=== PATIENT | female | born 1945 | race African-American/Black ===

== ENCOUNTER 2018-09-29 09:38 | Emergency (ER) | payer OTHER ==
[2018-09-29 09:56] VITALS: PULSE 58; BMI 33.3
--- NOTE | 2018-09-29 10:09 | PDOC ---
History of Present Illness - General Chief Complaint: Lightheaded Stated Complaint: WEAKNESS Time Seen by Provider: 09/29/18 09:51 History Source: Patient Exam Limitations: No Limitations - History of Present Illness Initial Comments: 09/29/18 10:35 73yo F with PMH of CKD, HTN, Vertigo presenting to ED with complaints of lightheadedness for the past 3 days, worse today. She arrived from [place] and is visiting her friend, arrived 1 week ago. She states that when she gets out of bed in the morning or gets up from a seated position, she feels lightheaded and a little unsteady, like she is about to pass out. She states that her vision gets blurry during these episodes. She denies chest pain, sob, dizziness , loc, black out vision, palpitations, abdominal pain, n/v/d, urinary symptoms, weightloss, numbness/tingling, changes in appetite. She states that she usually remembers to take her medications and does not take more than she is supposed to. Amlodipine was recently added to her medication regimen. PMD: in [place] PMH: see hpi PSH: disc repair Meds: amlodipine, metoprolol, Allergies: nkda Past History - Past Medical History Allergies/Adverse Reactions: Allergies Allergy/AdvReac Type Severity Reaction Status Date / Time No Known Allergies Allergy Verified 09/29/18 09:59 Home Medications: Ambulatory Orders Amlodipine Besylate 5 mg PO DAILY 09/29/18 Aspirin [Gatito Chewable] 81 mg PO DAILY 09/29/18 Docusate Sodium 100 mg PO DAILY 09/29/18 Folic Acid 1 mg PO DAILY 09/29/18 Metoprolol Succinate 100 mg PO DAILY 09/29/18 Olmesartan Medoxomil 40 mg PO DAILY 09/29/18 COPD: No Disorders: Yes (CKD) HTN: Yes Hypercholesterolemia: Yes - Surgical History Neurologic Surgery: Yes (herniated disc surgery) - Suicide/Smoking/Psychosocial Hx Smoking History: Never smoked Hx Alcohol Use: No Drug/Substance Use Hx: No *Physical Exam - Vital Signs Last Vital Signs Temp Pulse Resp BP Pulse Ox 98.0 F 58 L 19 158/77 100 09/29/18 09:38 09/29/18 09:38 09/29/18 09:38 09/29/18 09:38 09/29/18 09:38 ED Treatment Course - LABORATORY CBC & Chemistry Diagram: 09/29/18 10:27 09/29/18 10:36 Medical Decision Making - Medical Decision Making 09/29/18 10:44 73yo F with PMH of CKD, HTN, Vertigo presenting to ED with complaints of lightheadedness for the past 3 days, worse today. She arrived from [place] and is visiting her friend, arrived 1 week ago. She states that when she gets out of bed in the morning or gets up from a seated position, she feels lightheaded and a little unsteady, like she is about to pass out. She states that her vision gets blurry during these episodes. She denies chest pain, sob, dizziness , loc, black out vision, palpitations, abdominal pain, n/v/d, urinary symptoms, weightloss, numbness/tingling, changes in appetite. She states that she usually remembers to take her medications and does not take more than she is supposed to. Amlodipine was recently added to her medication regimen. Vitals: HR 58 PE: no neurological deficits, lungs cta, normal heart sounds, no leg swelling. Ddx includes but not limited to orthostatic hypotension, arrhythmia, medication overdose, polypharmacy, acs, pe, mass/malignancy, cva/tia, dehydration, electrolyte/metabolic abnormality -orthostatics, ekg -trop,cbc, cmp -iv fluids 09/29/18 11:20 EKG: hr 57, pr 212, qrs 90. Sinus bradycardia, 1st degree AV block. labs wnl, Cr 1.4 (h/o ckd, no prior to compare to) 09/29/18 11:38 Will get second trop orthostatics negative 09/29/18 13:46 Pt sitting comfortably, pending second troponin. Was seen ambulating in ED without difficulty. *DC/Admit/Observation/Transfer Diagnosis at time of Disposition: Lightheaded - Discharge Dispostion Disposition: HOME Condition at time of disposition: Good Decision to Admit order: No - Referrals Referrals: ON STAFF,NOT [Primary Care Provider] - - Patient Instructions Additional Instructions: You were seen in the emergency room for feeling lightheaded for the past few days. Your blood tests are normal. I do not know the exact cause but it could be due to dehydration or medication use or standing up too quickly. I recommend taking your time when getting up from laying or sitting down. Drink plenty of fluids and take your medications as directed. I also recommend seeing your primary care doctor about this visit to the ED. Come back to the emergency room if you continue to feel lightheaded, if you pass out, have chest pain, feel SOB or have changes in vision or if any new concerning symptom develops. Thank you - Post Discharge Activity
[2018-09-29] MEDS ORDERED: SODIUM CHLORIDE 1,000 ML IV STA (10:33)
[2018-09-29 10:46] LABS: BASO % 0.5 % (0-2.0); EOS % 1.9 % (0-4.5); HEMATOCRIT 31.7 % (32.4-45.2); HEMOGLOBIN 10.4 GM/dL (10.7-15.3); MCH 28.6 pg (25.7-33.7); MCHC 32.9 g/dl (32.0-36.0); MEAN CELL VOLUME 86.9 fl (80-96); MEAN PLT VOLUME 8.8 fl (7.5-11.1); NEUT % 42.6 % (42.8-82.8); PLATELET COUNT 201 K/MM3 (134-434); RBC 3.65 M/mm3 (3.60-5.2); RDW 14.9 % (11.6-15.6); WHITE BLOOD COUNT 3.1 K/mm3 (4.0-10.0)
[2018-09-29 11:05] LABS: URINE APPEARANCE CLEAR; URINE BILIRUBIN NEGATIVE (NEGATIVE); URINE COLOR YELLOW; URINE GLUCOSE (UA) NEGATIVE (NEGATIVE); URINE KETONE NEGATIVE (NEGATIVE); URINE LEUK ESTERASE NEGATIVE (NEGATIVE); URINE NITRITE NEGATIVE (NEGATIVE); URINE PROTEIN NEGATIVE (NEGATIVE); URINE UROBILINOGEN 0.2 mg/dL (0.2-1.0)
[2018-09-29 11:19] LABS: ALBUMIN 3.5 g/dl (3.4-5.0); BILIRUBIN,TOTAL 0.3 mg/dL (0.2-1); BLOOD UREA NITROGEN 29.3 mg/dL (7-18); CALCIUM 9.2 mg/dL (8.5-10.1); CREATININE 1.4 mg/dL (0.55-1.3); MAGNESIUM 2.3 mg/dL (1.8-2.4); POTASSIUM 3.8 mmol/L (3.5-5.1); TOT PROT 7.3 g/dl (6.4-8.2)
--- NOTE | 2018-09-29 12:15 | PDOC ---
Documentation entered by Marisol Freeman SCRIBE, acting as scribe for Yodit Schwartz MD. Yodit Schwartz MD: This documentation has been prepared by the Pete franz Sammi, SCRIBE, under my direction and personally reviewed by me in its entirety. I confirm that the documentation accurately reflects all work, treatment, procedures, and medical decision making performed by me. Attending Attestation - Resident Resident Name: Sa Renaira - ED Attending Attestation I have performed the following: I have examined & evaluated the patient, The case was reviewed & discussed with the resident, I agree w/resident's findings & plan, Exceptions are as noted - HPI HPI: 09/29/18 11:08 The patient is a 73 year old female, with a significant PMH of HTN, vertigo, CKD , who was BIBA to the emergency department for evaluation of lightheadedness this morning upon sitting up in bed. Pt reports she sat up too quickly and felt very lightheaded for up to 2 mins. She is currently visiting from [place] where she is monitored closely for high BP. She notes she became concerned that her BP was high when she had the lightheadedness. She did not bring her BP cuff to [facility] but her PMD told in the past that the fire department can check her BP, so she presented to the fire department. Her lightheadness resolved after 1-2 mins but due to concern about her BP being too high, she proceeded to the fire department where her BP was found to be reportedly elevated (pt does not recall the number, states "100 something"), and EMS was activated. The patient reports similar lightheadness episodes in the past when she sits up in the morning from bed or when she stands up too quickly. She has been advised by her PMD in [place] not to "spring up too quickly" so as to prevent these symptoms. She reports the lightheadedness this morning was similar to these episodes but she was more so concerned about her BP. Of note, pt was recently also put on amlodipine and her valsartan dose was increased a few weeks ago for better BP control. The patient denies chest pain, shortness of breath. Denies headache, focal weakness/numbness Denies fever, chills, nausea, vomiting, diarrhea and constipation. Denies dysuria, frequency, urgency and hematuria. Allergies: NKA She is currently sightseeing in [facility] on vacation. - Physicial Exam PE: 09/29/18 11:08 GENERAL: Awake, alert, and fully oriented, in no acute distress HEAD: No signs of trauma EYES: PERRLA, EOMI, sclera anicteric, conjunctiva clear ENT: Auricles normal inspection, hearing grossly normal, nares patent, oropharynx clear without exudates. Moist mucosa NECK: Normal ROM, supple, no lymphadenopathy, JVD, or masses LUNGS: Breath sounds equal, clear to auscultation bilaterally. No wheezes, and no crackles HEART: Regular rate and rhythm, normal S1 and S2, no murmurs, rubs or gallops ABDOMEN: Soft, nontender, normoactive bowel sounds. No guarding, no rebound. No masses EXTREMITIES: Normal range of motion, no edema. No clubbing or cyanosis. No cords , erythema, or tenderness BACK: No midline spinal tenderness in cervical/thoracic/lumbar region NEUROLOGICAL: Normal speech, cranial nerves intact, negative pronator drift, 5/ 5 strength in all 4 extremities, normal sensation to light touch in all 4 extremities, normal cerebellar exam, normal gait, normal reflexes and tone SKIN: Warm, Dry, normal turgor, no rashes or lesions noted. - Medical Decision Making 09/29/18 11:05 73yo F hx HTN, CKD presents to the ED with resolved lightheadedness after sitting up in bed and concern for elevated BP Vitals here with elevated BP, but not markedly so Exam within normal limits, pt is well appearing EKG is non ischemic Lightheadedness is likely orthostatic. There is a good chance pt's BP is lower in the AM, especially with recent uptitration of her HTN regimen. Furthermore, on check of orthostatics here, her diastolic BP halved from supine to standing which certainly can cause hypotension. Pt also notes she has been spending quite a bit of time sightseeing and has not been drinking more than 2-3 glasses of water per day. Will give 500cc IVF and reassess With regards to her BP, will check labs/urine for end organ damage but low likelihood. No headache and is neuro intact on exam, thus will hold off on neuro imaging. 09/29/18 12:46 CXR clear Labs unremarkable, neg trop Mild lay out carpenter elevated 1.4, although pt has known CKD (no prev values to compare) Feels better with fluids Asymptomatic and well appearing 2nd trop at 1330, if neg and continues to feel well, likely DC 09/29/18 14:12 Pt ambulating in ED, asymptomatic Labs including tropx2 neg Pt has spoken with her PMD and updated them She is eager to go home and feels much better If rpt vitals unremarkable, pt clinically stable for DC home I discussed the physical exam findings, ancillary test results and final diagnoses with the patient. I answered all of the patient's questions. The patient was satisfied with the care received and felt comfortable with the discharge plan and treatment plan. The patient will call their primary care physician within 24 hours to arrange follow-up and will return to the Emergency Department with any new, persistent or worsening symptoms.
[2018-09-29 14:22] VITALS: BP 137/71; TEMP 98.2
--- NOTE | 2018-09-30 10:21 | EKG ---
Test Reason : Blood Pressure : / mmHG Vent. Rate : 057 BPM Atrial Rate : 057 BPM P-R Int : 212 ms QRS Dur : 090 ms QT Int : 422 ms P-R-T Axes : 018 -10 -02 degrees QTc Int : 410 ms SINUS BRADYCARDIA WITH 1ST DEGREE A-V BLOCK VOLTAGE CRITERIA FOR LEFT VENTRICULAR HYPERTROPHY ABNORMAL ECG NO PREVIOUS ECGS AVAILABLE Confirmed by BRANDAN MELO MD ([id number]) on 09/30/2018 10:21:00 AM Referred By: Confirmed By:BRANDAN MELO MD
== END 2018-09-29 14:26 | disposition home or self-care (01) ==
LOC: JER 09:38
PROC: 3E0337Z Introduction of Electrolytic and Water Balance Substance into Peripheral Vein, Percutaneous Approach (ICD-10-PCS; principal; 2018-09-29)
DX: R42 Dizziness and giddiness (principal); I12.9 Hypertensive chronic kidney disease with stage 1 through stage 4 chronic kidney disease, or unspecified chronic kidney disease; N18.9 Chronic kidney disease, unspecified; E78.00 Pure hypercholesterolemia, unspecified
CPT/HCPCS: 36415; 71045-TC-FY; 80053; 81003; 83735; 84484; 85025; 93005; 93010; 99284-25; J7030